=== PATIENT | female | born 1950 | race Caucasian/White ===

== ENCOUNTER 2018-01-11 12:52 | Inpatient (IN) ==
[2018-01-11] MEDS ORDERED: Sod Chloride 0.9% Inj 1,000 ML IV.SIG ONE (13:44)
--- NOTE | 2018-01-11 13:48 | ED ---
HPI General Chief complaint: Nausea/Vomiting/Diarrhea Stated complaint: medical Time Seen by Provider: 01/11/18 13:26 Source: patient Mode of arrival: ambulatory Limitations: no limitations History of Present Illness HPI narrative: Patient is a 67-year-old female with history of hypertension as well as DVT, presents to the ER for evaluation of GI bleed. Patient reports that around 4 PM yesterday afternoon, she had an episode of bloody diarrhea. She called her primary care doctor today, Dr. John, and was told to go to the ER for evaluation. Patient reports that she had another episode of bloody diarrhea today. She has had colonoscopy's in the past - reports that she did have one when she turned 62 years and it was benign and was told that she should have another one in 10 years. Patient currently is on Plavix as she does have history of DVTs. Patient with no abdominal pain, no nausea vomiting, denies any lightheaded or dizziness, patient with no other complaints. Patient reports no history of GI bleed in the past. Related Data Home Medications Medication Instructions Recorded Confirmed amlodipine 5 mg PO DAILY 01/11/18 01/11/18 clopidogrel [Plavix] 75 mg PO DAILY 01/11/18 01/11/18 hydrochlorothiazide 25 mg PO DAILY 01/11/18 01/11/18 losartan 100 mg PO DAILY 01/11/18 01/11/18 Allergies Allergy/AdvReac Type Severity Reaction Status Date / Time Penicillins Allergy Hives Verified 01/11/18 13:29 aspirin AdvReac Vomiting Verified 01/11/18 13:29 Review of Systems ROS: all other systems reviewed are negative [facility] Medical History Medical History DVT (deep venous thrombosis) (Acute) Hypertension (Acute) Social History Social History Substance History: No History of Abuse Second Hand Smoke Exposure: No Smoking Status: Former smoker How Often Do You Have a Drink Containing Alcohol: 4 or more times a week Recent Travel in [facility] within the Last 8 Weeks: No Recent Out of Country Travel within the Last 8 Weeks: No Immunization History Tetanus Immunization: <5 Years Exam Narrative Exam Narrative: GENERAL: NAD SKIN: Focused skin assessment warm/dry. HEAD: Atraumatic. Normocephalic. EYES: Pupils equal and round. No scleral icterus. No injection or drainage. ENT: No nasal bleeding or discharge. Mucous membranes pink and moist. NECK: Trachea midline. No JVD. CARDIOVASCULAR: Regular rate and rhythm. No murmur appreciated. RESPIRATORY: No accessory muscle use. Clear to auscultation. Breath sounds equal bilaterally. GASTROINTESTINAL: Abdomen soft, non-tender, nondistended. Hepatic and splenic margins not palpable. Recttal exam performed with RN at bedside, patient with grossly heme positive melanotic stool MUSCULOSKELETAL: No obvious deformities. No clubbing. No cyanosis. No edema. NEUROLOGICAL: Awake and alert. No obvious cranial nerve deficits. Motor grossly within normal limits. Normal speech. PSYCHIATRIC: Appropriate mood and affect; insight and judgment normal. Course Initial Documented Vital Signs Temperature 98.6 F 01/11/18 13:08 Pulse Rate 97 H 01/11/18 13:08 Respiratory Rate 16 01/11/18 13:08 Blood Pressure 148/82 H 01/11/18 13:08 Pulse Oximetry 100 01/11/18 13:08 Last Documented Vital Signs Temperature 98.6 F 01/11/18 13:08 Pulse Rate 92 H 01/11/18 13:31 Respiratory Rate 24 01/11/18 13:31 Blood Pressure 172/84 H 01/11/18 13:31 Pulse Oximetry 98 01/11/18 14:49 Medical Decision Making MDM Narrative Medical decision making narrative: During the course of the patients emergency department visit, the patients history, examination, and differential diagnosis were reviewed with the patient. The patient was placed on a sports physical therapist with oximetry and frequent blood pressure monitoring. The patient had an IV access obtained and blood work sent for analysis. The patient was initially provided IVF, type and screen ordered as she does have melanotic stool The patients laboratory studies were reviewed and remarkable for potassium 2.9 - iv and po potassium administered, hgb 11.3 - patient anemic with melana - patient will be obs for GI bleed workup case reviewed with Dr. Gamble who accepts pt to service Radiology studies were reviewed and remarkable for [-] Medical Screen Exam Complete: Yes Emergency Medical Condition: Yes Differential Diagnosis Differential Diagnosis: GI bleed - gastric/duodenal ulcer vs duodenitis, anemia , electrolyte abnormality Medical Records Medical records reviewed: Yes I reviewed the patient's medical records. Lab Data Result diagrams: 01/11/18 13:59 01/11/18 13:59 Lab Results 01/11/18 01/11/18 01/11/18 Range/Units 13:59 13:59 13:59 WBC 3.7 L (4.0-11.0) th/mm3 RBC 3.60 L (4.00-5.30) mil/mm3 Hgb 11.3 L (11.6-15.3) gm/dL Hct 33.8 L (35.0-46.0) % MCV 94.0 (80.0-100.0) fL MCH 31.5 (27.0-34.0) pg MCHC 33.5 (32.0-36.0) % RDW 13.7 (11.6-17.2) % Plt Count 300 (150-450) th/mm3 MPV 6.8 L (7.0-11.0) fL Neut % (Auto) 76.6 H (16.0-70.0) % Lymph % (Auto) 13.1 (9.0-44.0) % [place] % (Auto) 9.7 H (0.0-8.0) % Eos % (Auto) 0.3 (0.0-4.0) % Baso % (Auto) 0.3 (0.0-2.0) % Neut # (Auto) 2.9 (1.8-7.7) th/mm3 Lymph # (Auto) 0.5 L (1.0-4.8) th/mm3 [place] # (Auto) 0.4 (0.0-0.9) th/mm3 Eos # (Auto) 0.0 (0.0-0.4) th/mm3 Baso # (Auto) 0.0 (0.0-0.2) th/mm3 WBC Differential . Differential Comment Auto diff final PT 10.2 (9.8-11.6) sec INR 1.0 Ratio APTT 22.7 L (24.3-30.1) sec Sodium 136 (136-145) meq/L Potassium 2.9 L* (3.5-5.1) meq/L Chloride 101 (98-107) meq/L Carbon Dioxide 26.2 (21.0-32.0) meq/L Anion Gap 9 (5-15) meq/L BUN 12 (7-18) mg/dL Creatinine 0.99 (0.50-1.00) mg/dL Estimated GFR 56 L (>89) mL/min Random Glucose 102 (74-106) mg/dL Calcium 9.6 (8.5-10.1) mg/dL Total Bilirubin 0.9 (0.2-1.0) mg/dL AST 25 (15-37) U/L ALT 26 (10-53) U/L Alkaline Phosphatase 67 (45-117) U/L Total Protein 8.8 H (6.4-8.2) g/dL Albumin 4.1 (3.4-5.0) g/dL Lipase 141 (73-393) U/L Urine Color (Yellw/Straw) Urine Clarity (Clear) Urine pH (5.0-8.5) Ur Specific [place] (1.002-1.035) Urine Protein (Neg-Trace) mg/dL Urine Glucose (UA) (Negative) mg/dL Urine Ketones (Negative) mg/dL Urine Occult Blood (Negative) Urine Nitrate (Negative) Urine Bilirubin (Negative) Urine Urobilinogen (Less than 2) mg/dL Ur Leukocyte Esterase (Negative) Urine RBC (0-3) /hpf Urine WBC (0-5) /hpf Ur Squamous Epith Cells (0-5) /hpf Hyaline Casts (0-3) /lpf Urine Mucus (Occasional) /lpf Micro UA Comment Ur Microscopic Review Urine Culture Comments Blood Type Blood Type Recheck Antibody Screen 01/11/18 01/11/18 Range/Units 13:59 14:33 WBC (4.0-11.0) th/mm3 RBC (4.00-5.30) mil/mm3 Hgb (11.6-15.3) gm/dL Hct (35.0-46.0) % MCV (80.0-100.0) fL MCH (27.0-34.0) pg MCHC (32.0-36.0) % RDW (11.6-17.2) % Plt Count (150-450) th/mm3 MPV (7.0-11.0) fL Neut % (Auto) (16.0-70.0) % Lymph % (Auto) (9.0-44.0) % [place] % (Auto) (0.0-8.0) % Eos % (Auto) (0.0-4.0) % Baso % (Auto) (0.0-2.0) % Neut # (Auto) (1.8-7.7) th/mm3 Lymph # (Auto) (1.0-4.8) th/mm3 [place] # (Auto) (0.0-0.9) th/mm3 Eos # (Auto) (0.0-0.4) th/mm3 Baso # (Auto) (0.0-0.2) th/mm3 WBC Differential Differential Comment PT (9.8-11.6) sec INR Ratio APTT (24.3-30.1) sec Sodium (136-145) meq/L Potassium (3.5-5.1) meq/L Chloride (98-107) meq/L Carbon Dioxide (21.0-32.0) meq/L Anion Gap (5-15) meq/L BUN (7-18) mg/dL Creatinine (0.50-1.00) mg/dL Estimated GFR (>89) mL/min Random Glucose (74-106) mg/dL Calcium (8.5-10.1) mg/dL Total Bilirubin (0.2-1.0) mg/dL AST (15-37) U/L ALT (10-53) U/L Alkaline Phosphatase (45-117) U/L Total Protein (6.4-8.2) g/dL Albumin (3.4-5.0) g/dL Lipase (73-393) U/L Urine Color Yellow (Yellw/Straw) Urine Clarity Clear (Clear) Urine pH 6.0 (5.0-8.5) Ur Specific [place] 1.013 (1.002-1.035) Urine Protein Negative (Neg-Trace) mg/dL Urine Glucose (UA) Negative (Negative) mg/dL Urine Ketones Negative (Negative) mg/dL Urine Occult Blood Moderate H (Negative) Urine Nitrate Negative (Negative) Urine Bilirubin Negative (Negative) Urine Urobilinogen Less than 2 (Less than 2) mg/dL Ur Leukocyte Esterase Negative (Negative) Urine RBC 1 (0-3) /hpf Urine WBC 3 (0-5) /hpf Ur Squamous Epith Cells 1 (0-5) /hpf Hyaline Casts 25 (0-3) /lpf Urine Mucus Few H (Occasional) /lpf Micro UA Comment Culture not ind Ur Microscopic Review Not Reportable Urine Culture Comments Culture not ind Blood Type A Negative Blood Type Recheck Required Antibody Screen Negative Imaging Data Radiologist's impression: Abdomen/Pelvis CT 01/11/18 13:44 CONCLUSION: 1. Cholelithiasis. 2. Diffuse atherosclerosis. 3. No inflammatory changes are seen in the abdomen or pelvis. 4. Nonobstructing right renal calculi. Discharge Plan Discharge Disposition Patient Disposition: 30 Still Patient Discharge Condition Condition: Stable Discharge Details Diagnosis: GI bleed Physicians Team ED Provider: Lawanda Kessler Primary Care Provider: Jose Elam Rxs /Orders / Referrals /Forms Prescriptions: No Action clopidogrel [Plavix] 75 mg Tablet 75 mg PO DAILY RF: 0 amlodipine 5 mg Tablet 5 mg PO DAILY RF: 0 hydrochlorothiazide 25 mg Tablet 25 mg PO DAILY RF: 0 losartan 100 mg Tablet 100 mg PO DAILY RF: 0 Discharge Interventions Interventions: Vital Signs Last Done: 01/11/18 13:31 Status ED Status: With Doctor
[2018-01-11 14:13] LABS: Baso % (Auto) 0.3 % (0.0-2.0); Eos % (Auto) 0.3 % (0.0-4.0); Hematocrit 33.8 % (35.0-46.0); Hemoglobin 11.3 gm/dL (11.6-15.3); Lymph # (Auto) 0.5 th/mm3 (1.0-4.8); Lymph % (Auto) 13.1 % (9.0-44.0); Mean Corpuscular HGB Conc 33.5 % (32.0-36.0); Mean Corpuscular Hemoglobin 31.5 pg (27.0-34.0); Mean Platelet Volume 6.8 fL (7.0-11.0); Mono # (Auto) 0.4 th/mm3 (0.0-0.9); Mono % (Auto) 9.7 % (0.0-8.0); Neut # (Auto) 2.9 th/mm3 (1.8-7.7); Neut % (Auto) 76.6 % (16.0-70.0); Platelet Count 300 th/mm3 (150-450); Red Cell Distribution Width 13.7 % (11.6-17.2); White Blood Count 3.7 th/mm3 (4.0-11.0)
[2018-01-11 14:23] LABS: Activated Partial Thrombo Time 22.7 sec (24.3-30.1); Prothrombin Time 10.2 sec (9.8-11.6)
[2018-01-11 14:35] LABS: Alanine Aminotransferase 26 U/L (10-53); Albumin 4.1 g/dL (3.4-5.0); Alkaline Phosphatase 67 U/L (45-117); Anion Gap 9 meq/L (5-15); Aspartate Aminotransferase 25 U/L (15-37); Blood Urea Nitrogen 12 mg/dL (7-18); Calcium 9.6 mg/dL (8.5-10.1); Carbon Dioxide 26.2 meq/L (21.0-32.0); Chloride 101 meq/L (98-107); Glomerular Filtration Rate 56 mL/min (>89); Glucose,Random 102 mg/dL (74-106); Lipase 141 U/L (73-393); Sodium 136 meq/L (136-145); Total Protein 8.8 g/dL (6.4-8.2)
[2018-01-11 14:39] LABS: Potassium 2.9 meq/L (3.5-5.1)
[2018-01-11] MEDS ORDERED: Potassium Chlor 20 mEq Premix 20 MEQ/100 ML PIGGYBACK IV.SIG ONE (15:13)
--- NOTE | 2018-01-11 15:15 | CT ---
EXAM DATE: 01/11/2018 1:48 PM EDT AGE/SEX: 67 years / Female INDICATIONS: Bloody diarrhea since yesterday abdomen pian CLINICAL DATA: This is the patient's initial encounter. Patient reports that signs and symptoms have been present for 1 day and indicates a pain score of 0/10. MEDICAL/SURGICAL HISTORY: Deep venous thrombosis. Hypertension. None. RADIATION DOSE: 11.17 CTDI (mGy) COMPARISON: No prior exams available for comparison. TECHNIQUE: Multiple contiguous axial images were obtained through the abdomen. Images were obtained using multiple row detector helical technique. Using automated exposure control and adjustment of the mA and/or kV according to patient size, radiation dose was kept as low as reasonably achievable to o btain optimal diagnostic quality images. DICOM format image data is available electronically for rev iew and comparison. FINDINGS: Lung bases are clear. Osseous structures are intact. Atherosclerotic calcification of the aorta and i liac vessels are noted. Cholelithiasis is noted. Liver, spleen, pancreas, adrenal glands, left kidney unremarkable. Nonobstructing 2 mm right midpole renal calculi. Urinary bladder is unremarkable. Uter us and adnexa are unremarkable. No evidence of bowel obstruction, free fluid or free air. Appendix no rmal. Right common iliac artery stent. CONCLUSION: 1. Cholelithiasis. 2. Diffuse atherosclerosis. 3. No inflammatory changes are seen in the abdomen or pelvis. 4. Nonobstructing right renal calculi. Electronically signed by: Anson Ghotra MD 01/11/2018 3:14 PM EDT
[2018-01-11] MEDS ORDERED: Pantoprazole Inj 80 MG in Sodium Chlor 0.9% Inj 35 ML IV.SIG ONE (15:17)
[2018-01-11 15:23] LABS: Bilirubin,Urine Negative (Negative); Clarity,Urine Clear (Clear); Color,Urine Yellow (Yellw/Straw); Glucose,Urine (UA) Negative (Negative); Hyaline Casts,Urine 25 /lpf (0-3); Leukocyte Esterase,Urine Negative (Negative); Mucus,Urine Few /lpf (Occasional); Nitrite,Urine Negative (Negative); Specific Gravity,Urine 1.013 (1.002-1.035); Squamous Epithelial Cell,Urine 1 /hpf (0-5)
--- NOTE | 2018-01-11 16:09 | P.HPIM ---
History of Present Illness Primary Care Physician: Jose Elam Pt is 67 yo female on plavix for pad, who took just 2 or 3 ibuprofen within last few days and drinks usually 2 beers per day. 2 days ago had 4 beers. Pt began seeing [facility]bpr yesterday and alot of gas and bloating. In ED she was found to have melena on exam. I was asked to admit her for GI evaluation. PMH htn pad. stents right iliac rle thrombosis. tpa reports "nml:" colonoscopy about 10yrs ago. sh average 2 beers per day. quit tob 10 yrs ago. 25yrs 1ppd NC. - Diagnosis (1) GI bleed (2) PAD (peripheral artery disease) (3) HTN (hypertension) Review of Systems rectal bleeding. PMF - History History Provided By: Patient - Medical History Medical History: Medical History (Last Reviewed 01/11/18 @ 13:51 by Lawanda Kessler) DVT (deep venous thrombosis) Hypertension - Tobacco History Second Hand Smoke Exposure: No Smoking Status: Former smoker - Alcohol History How Often Do You Have a Drink Containing Alcohol: 4 or more times a week - Substance Use History Substance History: No History of Abuse - Travel History Recent Travel in the [place] Within the Last 8 Weeks: No Recent Travel Out of the Country Within the Last 8 Weeks: No - Immunization History Tetanus Immunization: <5 Years Medications and Allergies Active Medications: Active Medications Amlodipine Besylate (Norvasc) 5 mg PO DAILY MYRA Clonidine HCl (Catapres) 0.1 mg PO Q6H PRN PRN Reason: sbp > 170 Hydrochlorothiazide (Hydrodiuril) 25 mg PO DAILY MYRA Potassium Chloride (Kcl 20 Meq Premix Inj) 20 meq in 100 mls @ 50 mls/hr IV.SIG ONCE ONE Stop: 01/11/18 17:12 Last Admin: 01/11/18 16:01 Dose: 50 mls/hr Pantoprazole Sodium 80 mg/ (Sodium Chloride) 100 mls @ 10 mls/hr IV.CONT CONT MYRA Potassium Chloride/Sodium Chloride (Ns + Kcl 20 Meq Inj) 1,000 mls @ 84 mls/hr IV.CONT .[id number] MYRA Non-Formulary Medication (Losartan [Losartan]) 100 mg PO DAILY MYRA Sodium Chloride (Ns Flush) 2 ml IV.FLUSH PRN PRN PRN Reason: FLUSH AFTER USING IV ACCESS Allergies Allergy/AdvReac Type Severity Reaction Status Date / Time Penicillins Allergy Hives Verified 01/11/18 13:29 aspirin AdvReac Vomiting Verified 01/11/18 13:29 Home Medications Medication Instructions Recorded Confirmed Type amlodipine 5 mg PO DAILY 01/11/18 01/11/18 History clopidogrel [Plavix] 75 mg PO DAILY 01/11/18 01/11/18 History hydrochlorothiazide 25 mg PO DAILY 01/11/18 01/11/18 History losartan 100 mg PO DAILY 01/11/18 01/11/18 History Exam Vital signs: Vital Signs 01/11/18 13:08 01/11/18 13:31 01/11/18 14:49 Temperature 98.6 F Pulse Rate 97 H 92 H Respiratory Rate 16 24 Blood Pressure 148/82 H 172/84 H Pulse Oximetry 100 100 98 Intake & Output 01/10/18 01/11/18 01/11/18 18:59 06:59 18:59 Intake Total 1000 / 1000 Balance 1000 / 1000 Weight 68.492 kg Intake: IV 1000 / 1000 NS Inj 1,000 ML @ Wide Open IV. 1000 / 1000 SIG BOLUS ONE Rx#:[id number] heart reg lung cta abd s/nt ext no edema Results - Labs CBC & Chem 7: 01/11/18 13:59 01/11/18 13:59 Labs: Short CBC 01/11/18 Range/Units 13:59 WBC 3.7 L (4.0-11.0) th/mm3 Hgb 11.3 L (11.6-15.3) gm/dL Hct 33.8 L (35.0-46.0) % Plt Count 300 (150-450) th/mm3 BMP 01/11/18 13:59 Sodium 136 Potassium 2.9 L* Chloride 101 Carbon Dioxide 26.2 BUN 12 Creatinine 0.99 Calcium 9.6 Liver Function 01/11/18 Range/Units 13:59 Total Bilirubin 0.9 (0.2-1.0) mg/dL AST 25 (15-37) U/L ALT 26 (10-53) U/L Alkaline Phosphatase 67 (45-117) U/L Albumin 4.1 (3.4-5.0) g/dL Urine 01/11/18 Range/Units 14:33 Urine Color Yellow (Yellw/Straw) Urine Clarity Clear (Clear) Urine pH 6.0 (5.0-8.5) Ur Specific [place] 1.013 (1.002-1.035) Urine Protein Negative (Neg-Trace) mg/dL Urine Glucose (UA) Negative (Negative) mg/dL - Imaging Impressions Abdomen/Pelvis CT 01/11/18 13:44 CONCLUSION: 1. Cholelithiasis. 2. Diffuse atherosclerosis. 3. No inflammatory changes are seen in the abdomen or pelvis. 4. Nonobstructing right renal calculi. Caprini VTE Risk Assessment Caprini VTE Risk Assessment: Moderate/High Risk (score >= 2) Caprini Risk Assessment Model: Point Value = 1 Point Value = 2 Point Value = 3 Point Value = 5 Age 41-60 Minor surgery BMI > 25 kg/m2 Swollen legs Varicose veins or History of unexplained or recurrent spontaneous Oral contraceptives or hormone replacement Sepsis (< 1 month) Serious lung disease, including pneumonia (< 1 month) Abnormal pulmonary function Acute myocardial infarction Congestive heart failure (< 1 month) History of inflammatory bowel disease Medical patient at bed rest Age 61-74 Arthroscopic surgery Major open surgery (> 45 min) Laparoscopic surgery (> 45 min) Malignancy Confined to bed (> 72 hours) Immobilizing plaster cast Central venous access Age >= 75 History of VTE Family history of VTE Factor V Leiden Prothrombin [id number] Lupus anticoagulant Anticardiolipin antibodies Elevated serum homocysteine Heparin-induced thrombocytopenia Other congenital or acquired thrombophilia Stroke (< 1 month) Elective arthroplasty Hip, pelvis, or leg fracture Acute spinal cord injury (< 1 month) Prophylaxis Regimen: Total Risk Factor Score Risk Level Prophylaxis Regimen 0-1 Low Early ambulation 2 Moderate Order ONE of the following: *Sequential Compression Device (SCD) *Heparin 5000 units SQ BID 3-4 Higher Order ONE of the following medications: *Heparin 5000 units SQ TID *Enoxaparin/Lovenox 40 mg SQ daily (WT < 150 kg, CrCl > 30 mL/min) *Enoxaparin/Lovenox 30 mg SQ daily (WT < 150 kg, CrCl > 10-29 mL/min) *Enoxaparin/Lovenox 30 mg SQ BID (WT < 150 kg, CrCl > 30 mL/min) AND/OR *Sequential Compression Device (SCD) 5 or more Highest Order ONE of the following medications: *Heparin 5000 units SQ TID (Preferred with Epidurals) *Enoxaparin/Lovenox 40 mg SQ daily (WT < 150 kg, CrCl > 30 mL/min) *Enoxaparin/Lovenox 30 mg SQ daily (WT < 150 kg, CrCl > 10-29 mL/min) *Enoxaparin/Lovenox 30 mg SQ BID (WT < 150 kg, CrCl > 30 mL/min) AND *Sequential Compression Device (SCD) Assessment and Plan - Assessment (1) GI bleed Code(s): K92.2 - Gastrointestinal hemorrhage, unspecified Status: Acute Plan: 1. acute GIB.melena on exam pt uses ibuprofen, etoh, plavix. 2. hx pad/rle stents 3. htn 4. hypokalemia consult GI to evaluate for possible endoscopy clears IVF with kcl iv ppi dvt prophylaxis hold plavix. (2) PAD (peripheral artery disease) Code(s): I73.9 - Peripheral vascular disease, unspecified Status: Chronic (3) HTN (hypertension) Code(s): I10 - Essential (primary) hypertension Status: Chronic
[2018-01-11] MEDS: Pantoprazole Inj 80 MG in Sodium Chlor 0.9% Inj 100 ML IV.CONT SCH (16:18)
--- NOTE | 2018-01-11 17:21 | P.CONGI ---
History of Present Illness Consult date: 01/11/18 Consult reason: GI bleed with melena Chief complaint: GI bleed History of Present Illness: This patient is a 67-year-old female who presented to the emergency room today with report of dark brown to black stools with noted blood times 1 day. Patient also reports increased gas and abdominal bloating for 1-2 days. She denies any nausea or vomiting. Of note this patient is currently taking Plavix 75 mg p.o. daily for the past 7-8 years for peripheral artery disease as well as history of DVT to the right lower extremity. Patient denies the use of iron supplements, Pepto-Bismol, ingestion of dark green leafy vegetables or dark fruits. Patient endorses use of ibuprofen "a few days ago" for generalized pain . Patient denies any symptoms of acid reflux, she denies heartburn. She does report 2 episodes recently of difficulty swallowing pieces of beef. Patient states she felt it took a very long time to swallow the meat. After relaxing and deep breathing she was finally able to swallow. Patient denies odynophagia. States she prevents these instances by chewing food slowly and taking smaller bites during meals. Denies coughing or choking with the ingestion of solid foods liquids or medications. Patient denies ever having had an EGD. Patient states she has had 2 colonoscopies in the past with the most recent being 3 years ago which she states was a normal exam. States she has normally 2 -3 times a day soft brown bowel movement with no noted blood. Patient denies tobacco use but does report drinking 2 beers daily. No significant family history recollected by patient for any type of gastrointestinal diseases/disorders. <Ofelia Marlow - Last Filed: 01/11/18 17:21> Review of Systems All other systems reviewed negative except as stated in HPI <Ofelia Marlow - Last Filed: 01/11/18 17:21> PMFSH - History History Provided By: Patient - Medical History Medical History: Medical History (Last Reviewed 01/11/18 @ 13:51 by Lawanda Kessler) DVT (deep venous thrombosis) Hypertension - Tobacco History Second Hand Smoke Exposure: No Smoking Status: Former smoker - Alcohol History How Often Do You Have a Drink Containing Alcohol: 4 or more times a week - Substance Use History Substance History: No History of Abuse - Travel History Recent Travel in the [facility] Within the Last 8 Weeks: No Recent Travel Out of the Country Within the Last 8 Weeks: No - Immunization History Tetanus Immunization: <5 Years <Ofelia Marlow - Last Filed: 01/11/18 17:21> - Medical History Medical History: Medical History (Last Reviewed 01/11/18 @ 13:51 by Lawanda Kessler) DVT (deep venous thrombosis) Hypertension <Darleen Brandon - Last Filed: 01/11/18 18:45> Medications and Allergies Active Medications: Active Medications Amlodipine Besylate (Norvasc) 5 mg PO DAILY MYRA Clonidine HCl (Catapres) 0.1 mg PO Q6H PRN PRN Reason: sbp > 170 Hydrochlorothiazide (Hydrodiuril) 25 mg PO DAILY MYRA Potassium Chloride (Kcl 20 Meq Premix Inj) 20 meq in 100 mls @ 50 mls/hr IV.SIG ONCE ONE Stop: 01/11/18 17:12 Last Admin: 01/11/18 16:01 Dose: 50 mls/hr Pantoprazole Sodium 80 mg/ (Sodium Chloride) 100 mls @ 10 mls/hr IV.CONT CONT MYRA Last Admin: 01/11/18 16:18 Dose: 10 mls/hr Potassium Chloride/Sodium Chloride (Ns + Kcl 20 Meq Inj) 1,000 mls @ 84 mls/hr IV.CONT .[id number] MYRA Losartan Potassium (Cozaar) 100 mg PO DAILY MYRA Sodium Chloride (Ns Flush) 2 ml IV.FLUSH PRN PRN PRN Reason: FLUSH AFTER USING IV ACCESS <Ofelia Marlow - Last Filed: 01/11/18 17:21> Active Medications: Active Medications Amlodipine Besylate (Norvasc) 5 mg PO DAILY MYRA Clonidine HCl (Catapres) 0.1 mg PO Q6H PRN PRN Reason: sbp > 170 Hydrochlorothiazide (Hydrodiuril) 25 mg PO DAILY MYRA Pantoprazole Sodium 80 mg/ (Sodium Chloride) 100 mls @ 10 mls/hr IV.CONT CONT MYRA Last Admin: 01/11/18 16:18 Dose: 10 mls/hr Potassium Chloride/Sodium Chloride (Ns + Kcl 20 Meq Inj) 1,000 mls @ 84 mls/hr IV.CONT .[id number] MYRA Last Admin: 01/11/18 18:01 Dose: 84 mls/hr Losartan Potassium (Cozaar) 100 mg PO DAILY MYRA Sodium Chloride (Ns Flush) 2 ml IV.FLUSH PRN PRN PRN Reason: FLUSH AFTER USING IV ACCESS <Darleen Brandon - Last Filed: 01/11/18 18:45> Allergies Allergy/AdvReac Type Severity Reaction Status Date / Time Penicillins Allergy Hives Verified 01/11/18 13:29 aspirin AdvReac Vomiting Verified 01/11/18 13:29 Home Medications Medication Instructions Recorded Confirmed Type amlodipine 5 mg PO DAILY 01/11/18 01/11/18 History clopidogrel [Plavix] 75 mg PO DAILY 01/11/18 01/11/18 History hydrochlorothiazide 25 mg PO DAILY 01/11/18 01/11/18 History losartan 100 mg PO DAILY 01/11/18 01/11/18 History Exam Vital signs: Vital Signs 01/11/18 13:08 01/11/18 13:31 01/11/18 14:24 Temperature 98.6 F Pulse Rate 97 H 92 H 80 Respiratory Rate 16 18 Blood Pressure 148/82 H 172/84 H 125/69 Pulse Oximetry 100 100 98 01/11/18 14:49 Temperature Pulse Rate Respiratory Rate Blood Pressure Pulse Oximetry 98 Intake & Output 01/10/18 01/11/18 01/11/18 18:59 06:59 18:59 Intake Total 1035 / 1035 Balance 1035 / 1035 Weight 68.492 kg Intake: IV 1035 / 1035 Protonix Inj 80 MG In NS Inj 35 35 / 35 ML @ 420 mls/hr IV.SIG BOLUS ONE Rx#:[id number] NS Inj 1,000 ML @ Wide Open IV. 1000 / 1000 SIG BOLUS ONE Rx#:[id number] - Constitutional no acute distress - Routine HEENT Exam Head: Present: normocephalic - Routine Respiratory Exam Present: CTA bilaterally. Absent: accessory muscle use - Routine Cardiovascular Exam Present: RRR - Routine Abdominal Exam Present: soft, normoactive bowel sounds. Absent: tenderness, distended, guarding, firm - Routine Extremities Exam Present: full ROM, pulses intact. Absent: edema - Routine Skin Exam Present: dry, warm - Routine Neurological Exam Present: alert, oriented X3 <Marlow,Ofelia - Last Filed: 01/11/18 17:21> Vital signs: Vital Signs 01/11/18 13:08 01/11/18 13:31 01/11/18 14:24 Temperature 98.6 F Pulse Rate 97 H 92 H 80 Respiratory Rate 16 24 18 Blood Pressure 148/82 H 172/84 H 125/69 Pulse Oximetry 100 100 98 01/11/18 14:49 01/11/18 18:00 Temperature 98.4 F Pulse Rate 80 Respiratory Rate 16 Blood Pressure 161/82 H Pulse Oximetry 98 99 Intake & Output 01/10/18 01/11/18 01/11/18 18:59 06:59 18:59 Intake Total 1135 / 1135 Balance 1135 / 1135 Weight 68.492 kg Intake: IV 1135 / 1135 Protonix Inj 80 MG In NS Inj 35 35 / 35 ML @ 420 mls/hr IV.SIG BOLUS ONE Rx#:[id number] KCl 20 mEq Premix Inj 20 meq In 100 / 100 100 ml @ 50 mls/hr IV.SIG ONCE ONE Rx#:[id number] NS Inj 1,000 ML @ Wide Open IV. 1000 / 1000 SIG BOLUS ONE Rx#:[id number] Other: Date of Last Bowel Movement 01/11/18 <Darleen Brandon - Last Filed: 01/11/18 18:45> Results - Labs CBC & Chem 7: 01/11/18 13:59 01/11/18 13:59 Labs: Laboratory Results - last 24 hr 01/11/18 01/11/18 01/11/18 13:59 13:59 13:59 WBC 3.7 L RBC 3.60 L Hgb 11.3 L Hct 33.8 L MCV 94.0 MCH 31.5 MCHC 33.5 RDW 13.7 Plt Count 300 MPV 6.8 L Neut % (Auto) 76.6 H Lymph % (Auto) 13.1 [place] % (Auto) 9.7 H Eos % (Auto) 0.3 Baso % (Auto) 0.3 Neut # (Auto) 2.9 Lymph # (Auto) 0.5 L [place] # (Auto) 0.4 Eos # (Auto) 0.0 Baso # (Auto) 0.0 WBC Differential . Differential Comment Auto diff final PT 10.2 INR 1.0 APTT 22.7 L Sodium 136 Potassium 2.9 L* Chloride 101 Carbon Dioxide 26.2 Anion Gap 9 BUN 12 Creatinine 0.99 Estimated GFR 56 L Random Glucose 102 Calcium 9.6 Total Bilirubin 0.9 AST 25 ALT 26 Alkaline Phosphatase 67 Total Protein 8.8 H Albumin 4.1 Lipase 141 Urine Color Urine Clarity Urine pH Ur Specific [place] Urine Protein Urine Glucose (UA) Urine Ketones Urine Occult Blood Urine Nitrate Urine Bilirubin Urine Urobilinogen Ur Leukocyte Esterase Urine RBC Urine WBC Ur Squamous Epith Cells Hyaline Casts Urine Mucus Micro UA Comment Ur Microscopic Review Urine Culture Comments Blood Type Blood Type Recheck Antibody Screen 01/11/18 01/11/18 13:59 14:33 WBC RBC Hgb Hct MCV MCH MCHC RDW Plt Count MPV Neut % (Auto) Lymph % (Auto) [place] % (Auto) Eos % (Auto) Baso % (Auto) Neut # (Auto) Lymph # (Auto) [place] # (Auto) Eos # (Auto) Baso # (Auto) WBC Differential Differential Comment PT INR APTT Sodium Potassium Chloride Carbon Dioxide Anion Gap BUN Creatinine Estimated GFR Random Glucose Calcium Total Bilirubin AST ALT Alkaline Phosphatase Total Protein Albumin Lipase Urine Color Yellow Urine Clarity Clear Urine pH 6.0 Ur Specific [place] 1.013 Urine Protein Negative Urine Glucose (UA) Negative Urine Ketones Negative Urine Occult Blood Moderate H Urine Nitrate Negative Urine Bilirubin Negative Urine Urobilinogen Less than 2 Ur Leukocyte Esterase Negative Urine RBC 1 Urine WBC 3 Ur Squamous Epith Cells 1 Hyaline Casts 25 Urine Mucus Few H Micro UA Comment Culture not ind Ur Microscopic Review Not Reportable Urine Culture Comments Culture not ind Blood Type A Negative Blood Type Recheck Required Antibody Screen Negative - Imaging Impressions Abdomen/Pelvis CT 01/11/18 13:44 CONCLUSION: 1. Cholelithiasis. 2. Diffuse atherosclerosis. 3. No inflammatory changes are seen in the abdomen or pelvis. 4. Nonobstructing right renal calculi. <Ofelia Marlow - Last Filed: 01/11/18 17:21> - Labs CBC & Chem 7: 01/11/18 13:59 01/11/18 13:59 Labs: Laboratory Results - last 24 hr 01/11/18 01/11/18 01/11/18 13:59 13:59 13:59 WBC 3.7 L RBC 3.60 L Hgb 11.3 L Hct 33.8 L MCV 94.0 MCH 31.5 MCHC 33.5 RDW 13.7 Plt Count 300 MPV 6.8 L Neut % (Auto) 76.6 H Lymph % (Auto) 13.1 [place] % (Auto) 9.7 H Eos % (Auto) 0.3 Baso % (Auto) 0.3 Neut # (Auto) 2.9 Lymph # (Auto) 0.5 L [place] # (Auto) 0.4 Eos # (Auto) 0.0 Baso # (Auto) 0.0 WBC Differential . Differential Comment Auto diff final PT 10.2 INR 1.0 APTT 22.7 L Sodium 136 Potassium 2.9 L* Chloride 101 Carbon Dioxide 26.2 Anion Gap 9 BUN 12 Creatinine 0.99 Estimated GFR 56 L Random Glucose 102 Calcium 9.6 Total Bilirubin 0.9 AST 25 ALT 26 Alkaline Phosphatase 67 Total Protein 8.8 H Albumin 4.1 Lipase 141 Urine Color Urine Clarity Urine pH Ur Specific [place] Urine Protein Urine Glucose (UA) Urine Ketones Urine Occult Blood Urine Nitrate Urine Bilirubin Urine Urobilinogen Ur Leukocyte Esterase Urine RBC Urine WBC Ur Squamous Epith Cells Hyaline Casts Urine Mucus Micro UA Comment Ur Microscopic Review Urine Culture Comments Blood Type Blood Type Recheck Antibody Screen 01/11/18 01/11/18 13:59 14:33 WBC RBC Hgb Hct MCV MCH MCHC RDW Plt Count MPV Neut % (Auto) Lymph % (Auto) [place] % (Auto) Eos % (Auto) Baso % (Auto) Neut # (Auto) Lymph # (Auto) [place] # (Auto) Eos # (Auto) Baso # (Auto) WBC Differential Differential Comment PT INR APTT Sodium Potassium Chloride Carbon Dioxide Anion Gap BUN Creatinine Estimated GFR Random Glucose Calcium Total Bilirubin AST ALT Alkaline Phosphatase Total Protein Albumin Lipase Urine Color Yellow Urine Clarity Clear Urine pH 6.0 Ur Specific [place] 1.013 Urine Protein Negative Urine Glucose (UA) Negative Urine Ketones Negative Urine Occult Blood Moderate H Urine Nitrate Negative Urine Bilirubin Negative Urine Urobilinogen Less than 2 Ur Leukocyte Esterase Negative Urine RBC 1 Urine WBC 3 Ur Squamous Epith Cells 1 Hyaline Casts 25 Urine Mucus Few H Micro UA Comment Culture not ind Ur Microscopic Review Not Reportable Urine Culture Comments Culture not ind Blood Type A Negative Blood Type Recheck Required Antibody Screen Negative - Imaging Impressions Abdomen/Pelvis CT 01/11/18 13:44 CONCLUSION: 1. Cholelithiasis. 2. Diffuse atherosclerosis. 3. No inflammatory changes are seen in the abdomen or pelvis. 4. Nonobstructing right renal calculi. <Darleen Brandon - Last Filed: 01/11/18 18:45> Assessment and Plan (1) GI bleed Status: Acute Code(s): K92.2 - Gastrointestinal hemorrhage, unspecified (2) Dysphagia Status: Acute Code(s): R13.10 - Dysphagia, unspecified - Plan This patient is a 67-year-old female who presented to the emergency room today with report of dark brown to black stools with noted blood times 1 day. Patient also reports increased gas and abdominal bloating for 1-2 days. She denies any nausea or vomiting. Of note this patient is currently taking Plavix 75 mg p.o. daily for the past 7-8 years for peripheral artery disease as well as history of DVT to the right lower extremity. Patient denies the use of iron supplements, Pepto-Bismol, ingestion of dark green leafy vegetables or dark fruits. Patient endorses use of ibuprofen "a few days ago" for generalized pain . Patient denies any symptoms of acid reflux, she denies heartburn. She does report 2 episodes recently of difficulty swallowing pieces of beef. Patient states she felt it took a very long time to swallow the meat. After relaxing and deep breathing she was finally able to swallow. Patient denies odynophagia. States she prevents these instances by chewing food slowly and taking smaller bites during meals. Denies coughing or choking with the ingestion of solid foods liquids or medications. Patient denies ever having had an EGD. Patient states she has had 2 colonoscopies in the past with the most recent being 3 years ago which she states was a normal exam. States she has normally 2 -3 times a day soft brown bowel movement with no noted blood. Patient denies tobacco use but does report drinking 2 beers daily. No significant family history recollected by patient for any type of gastrointestinal diseases/disorders. GI bleed Patient presented to the emergency room today at [facility] with complaint of black stools times 1 day. Patient currently taking Plavix 75 mg p.o. daily for history of DVT/PAD. Most recent endoscopy as described above. Patient denies any further bleeding since admission. Hemoglobin 11.3 hematocrit 33.8 platelet count 300 INR 1.0. Discussed plan for EGD with patient who verbalized understanding and agreement. Dysphagia Patient endorses 2 recent episodes of difficulty swallowing pieces of beef. Patient denies odynophagia, denies coughing or choking with meals, liquids or medications. Discussed possibility of need to dilate during EGD if required. Patient verbalizes understanding and agreement. Plan -Clear liquid diet for dinner -N.p.o. after midnight -Consent for EGD with possible dilatation-planned for a.m. -Monitor for bleeding -Continue PPI -Monitor labs -Supportive care -Further recommendations to follow based on patient status and findings This patient has been seen by myself and Dr. MILES and this note is written on her behalf - Attending Attestation Dr. Brandon <Ofelia Marlow - Last Filed: 01/11/18 17:21> (1) GI bleed Status: Acute Code(s): K92.2 - Gastrointestinal hemorrhage, unspecified (2) Dysphagia Status: Acute Code(s): R13.10 - Dysphagia, unspecified - Attending Attestation seen, examined agree with above <Darleen Brandon - Last Filed: 01/11/18 18:45>
[2018-01-12] MEDS: Pantoprazole Inj 80 MG in Sodium Chlor 0.9% Inj 100 ML IV.CONT SCH (02:55)
[2018-01-12 08:31] LABS: Baso % (Auto) 0.5 % (0.0-2.0); Eos % (Auto) 1.1 % (0.0-4.0); Hematocrit 27.8 % (35.0-46.0); Hemoglobin 9.6 gm/dL (11.6-15.3); Lymph # (Auto) 0.5 th/mm3 (1.0-4.8); Lymph % (Auto) 14.6 % (9.0-44.0); Mean Corpuscular HGB Conc 34.5 % (32.0-36.0); Mean Corpuscular Hemoglobin 31.8 pg (27.0-34.0); Mean Corpuscular Volume 92.3 fL (80.0-100.0); Mean Platelet Volume 6.9 fL (7.0-11.0); Mono # (Auto) 0.4 th/mm3 (0.0-0.9); Mono % (Auto) 11.6 % (0.0-8.0); Neut # (Auto) 2.3 th/mm3 (1.8-7.7); Neut % (Auto) 72.2 % (16.0-70.0); Platelet Count 236 th/mm3 (150-450); Red Blood Count 3.02 mil/mm3 (4.00-5.30); Red Cell Distribution Width 13.8 % (11.6-17.2); White Blood Count 3.2 th/mm3 (4.0-11.0)
[2018-01-12] MEDS ORDERED: hydroCHLOROthiazide 25 MG Tablet PO SCH (09:00)
[2018-01-12] MEDS ORDERED: amLODIPine 5 MG Tablet PO SCH (09:00)
[2018-01-12 09:05] LABS: Calcium 8.3 mg/dL (8.5-10.1); Carbon Dioxide 23.3 meq/L (21.0-32.0); Potassium 3.5 meq/L (3.5-5.1)
--- NOTE | 2018-01-12 11:21 | P.PNIM ---
Subjective Interval history: Pt has not had any reported active GI bleeding. She had a small bloody BM yesterday but none since then No nausea/vomiting Afebrile Denies any chest pain, SOB or palpitations Pt is planned for EGD today Physical Exam Vital signs: Vital Signs 01/11/18 13:08 01/11/18 13:31 01/11/18 14:24 Temperature 98.6 F Pulse Rate 97 H 92 H 80 Respiratory Rate 16 24 18 Blood Pressure 148/82 H 172/84 H 125/69 Pulse Oximetry 100 100 98 01/11/18 14:49 01/11/18 18:00 01/12/18 00:00 Temperature 98.4 F 98.3 F Pulse Rate 80 72 Respiratory Rate 16 18 Blood Pressure 161/82 H 132/66 Pulse Oximetry 98 99 98 01/12/18 04:00 01/12/18 08:00 Temperature 98.3 F 98.2 F Pulse Rate 72 76 Respiratory Rate 18 17 Blood Pressure 132/66 132/76 Pulse Oximetry 98 97 Intake & Output 01/11/18 01/12/18 01/12/18 18:59 06:59 18:59 Intake Total 1135 / 1135 1100 / 1100 0 / 0 Balance 1135 / 1135 1100 / 1100 0 / 0 Weight 68.492 kg 55.7 kg Intake: IV 1135 / 1135 1100 / 1100 NS + KCl 20 mEq Inj 1,000 ML @ 1000 / 1000 84 mls/hr IV.CONT .[id number] [facility] Rx#:[id number] Protonix Inj 80 MG In NS Inj 100 / 100 100 ML @ 10 mls/hr IV.CONT CONT [facility] Rx#:[id number] Protonix Inj 80 MG In NS Inj 35 35 / 35 ML @ 420 mls/hr IV.SIG BOLUS ONE Rx#:[id number] KCl 20 mEq Premix Inj 20 meq In 100 / 100 100 ml @ 50 mls/hr IV.SIG ONCE ONE Rx#:[id number] NS Inj 1,000 ML @ Wide Open IV. 1000 / 1000 SIG BOLUS ONE Rx#:[id number] Oral 0 / 0 Other: # Voids 1 Date of Last Bowel Movement 01/11/18 01/11/18 Narrative: General: NAD, AAOx3 Chest: CTA Cardiac: Regular Abd: +BS, soft ND/NT Ext: No edema Results - Labs CBC & Chem 7: 01/12/18 07:20 01/12/18 07:20 Laboratory Results - last 24 hr 01/11/18 01/11/18 01/11/18 13:59 13:59 13:59 WBC 3.7 L RBC 3.60 L Hgb 11.3 L Hct 33.8 L MCV 94.0 MCH 31.5 MCHC 33.5 RDW 13.7 Plt Count 300 MPV 6.8 L Neut % (Auto) 76.6 H Lymph % (Auto) 13.1 [place] % (Auto) 9.7 H Eos % (Auto) 0.3 Baso % (Auto) 0.3 Neut # (Auto) 2.9 Lymph # (Auto) 0.[address] [place] # (Auto) 0.4 Eos # (Auto) 0.0 Baso # (Auto) 0.0 WBC Differential . Differential Comment Auto diff final PT 10.2 INR 1.0 APTT 22.7 L Sodium 136 Potassium 2.9 L* Chloride 101 Carbon Dioxide 26.2 Anion Gap 9 BUN 12 Creatinine 0.99 Estimated GFR 56 L Random Glucose 102 Calcium 9.6 Total Bilirubin 0.9 AST 25 ALT 26 Alkaline Phosphatase 67 Total Protein 8.8 H Albumin 4.1 Lipase 141 Urine Color Urine Clarity Urine pH Ur Specific [place] Urine Protein Urine Glucose (UA) Urine Ketones Urine Occult Blood Urine Nitrate Urine Bilirubin Urine Urobilinogen Ur Leukocyte Esterase Urine RBC Urine WBC Ur Squamous Epith Cells Hyaline Casts Urine Mucus Micro UA Comment Ur Microscopic Review Urine Culture Comments Blood Type Blood Type Recheck Antibody Screen 01/11/18 01/11/18 01/12/18 13:59 14:33 07:20 WBC 3.2 L RBC 3.02 L Hgb 9.6 L Hct 27.8 L MCV 92.3 MCH 31.8 MCHC 34.5 RDW 13.8 Plt Count 236 MPV 6.9 L Neut % (Auto) 72.2 H Lymph % (Auto) 14.6 [place] % (Auto) 11.6 H Eos % (Auto) 1.1 Baso % (Auto) 0.5 Neut # (Auto) 2.3 Lymph # (Auto) 0.[address] [place] # (Auto) 0.4 Eos # (Auto) 0.0 Baso # (Auto) 0.0 WBC Differential . Differential Comment Auto diff final PT INR APTT Sodium Potassium Chloride Carbon Dioxide Anion Gap BUN Creatinine Estimated GFR Random Glucose Calcium Total Bilirubin AST ALT Alkaline Phosphatase Total Protein Albumin Lipase Urine Color Yellow Urine Clarity Clear Urine pH 6.0 Ur Specific [place] 1.013 Urine Protein Negative Urine Glucose (UA) Negative Urine Ketones Negative Urine Occult Blood Moderate H Urine Nitrate Negative Urine Bilirubin Negative Urine Urobilinogen Less than 2 Ur Leukocyte Esterase Negative Urine RBC 1 Urine WBC 3 Ur Squamous Epith Cells 1 Hyaline Casts 25 Urine Mucus Few H Micro UA Comment Culture not ind Ur Microscopic Review Not Reportable Urine Culture Comments Culture not ind Blood Type A Negative Blood Type Recheck Required Antibody Screen Negative 01/12/18 07:20 WBC RBC Hgb Hct MCV MCH MCHC RDW Plt Count MPV Neut % (Auto) Lymph % (Auto) [place] % (Auto) Eos % (Auto) Baso % (Auto) Neut # (Auto) Lymph # (Auto) [place] # (Auto) Eos # (Auto) Baso # (Auto) WBC Differential Differential Comment PT INR APTT Sodium 141 Potassium 3.5 Chloride 109 H D Carbon Dioxide 23.3 Anion Gap 9 BUN 7 Creatinine 0.76 Estimated GFR 76 L Random Glucose 85 Calcium 8.3 L D Total Bilirubin AST ALT Alkaline Phosphatase Total Protein Albumin Lipase Urine Color Urine Clarity Urine pH Ur Specific [place] Urine Protein Urine Glucose (UA) Urine Ketones Urine Occult Blood Urine Nitrate Urine Bilirubin Urine Urobilinogen Ur Leukocyte Esterase Urine RBC Urine WBC Ur Squamous Epith Cells Hyaline Casts Urine Mucus Micro UA Comment Ur Microscopic Review Urine Culture Comments Blood Type Blood Type Recheck Antibody Screen - Imaging Impressions Abdomen/Pelvis CT 01/11/18 13:44 CONCLUSION: 1. Cholelithiasis. 2. Diffuse atherosclerosis. 3. No inflammatory changes are seen in the abdomen or pelvis. 4. Nonobstructing right renal calculi. Assessment and Plan - Assessment (1) GI bleed Code(s): K92.2 - Gastrointestinal hemorrhage, unspecified Status: Acute Plan: 1. Acute GIB, melena on exam - Pt uses ibuprofen, etoh, plavix. - Appreciate GI consult. - Pt is planned for EGD today - Plavix is on hold - Cont. IVF - Avoid all NSAIDs - PPI - DVT prophylaxis with SCDs 2. Hx PAD/RLE stents - Plavix is on hold due to GIB 3. HTN - Cont home meds 4. hypokalemia ADDENDUM: - Pt underwent EGD on 01/12/18 which noted gastritis in antrum, esophagitis in distal esophagus, duodenitis in duodenal bulb, two avm's in duodenum second portion-s/p APC, and a hiatal hernia - Pt recommended bu GI for PPI, Avoid NSAIDs, fu in 2 weeks and if still black stool consider repeat colonoscopy, capsule endoscopy - Discussed with Dr. Brandon if pt is cleared to resume her Plavix and she states that pt is cleared from GI standpoint to resume her Plavix. - Pt will avoid all alcohol - She is to continue Protonix 40mg BID - Followup with Dr. Brandon in 2 weeks - Followup with PCP in 1 week. The exam, history, and the medical decision-making described in the above note were completed with the assistance of the mid-level provider. I reviewed and agree with the findings presented. I attest that I had a [id number] encounter with the patient on the same day, and personally performed and documented my assessment and findings in the medical record. discussed EGD finding. dc home on ppi. no etoh or nsaid discussed. f/u GI. (2) PAD (peripheral artery disease) Code(s): I73.9 - Peripheral vascular disease, unspecified Status: Chronic (3) HTN (hypertension) Code(s): I10 - Essential (primary) hypertension Status: Chronic
[2018-01-12 12:28] VITALS: TEMP 97.6
--- NOTE | 2018-01-12 12:59 | GIPROC ---
[facility] [address] [facility], [address] EGD PROCEDURE REPORT EXAM DATE: 01/12/2018 PATIENT NAME: Mariusz Parikh MR #: [id number] BIRTHDATE: 1950 ATTENDING: Darleen Brandon MD ORDER #: [id number] MUFFLE WORKER: Love Otto and Bernie Pinto STATUS: inpatient INDICATIONS: The patient is a 67 yr old female here for an EGD due to anemia gi bleeding PROCEDURE PERFORMED: EGD w/ biopsy EGD w/ control of bleeding egd with APC MEDICATIONS: None and Per Anesthesia. TOPICAL ANESTHETIC: none CONSENT: The patient understands the risks and benefits of the procedure and understands that these risks include, but are not limited to: sedation, allergic reaction, infection, perforation and/or bleeding. Alternative means of evaluation and treatment include, among others: physical exam, x-rays, and/or surgical intervention. The patient elects to proceed with this endoscopic procedure. medical equipment was checked for proper function. Hand hygiene and appropriate measures for infection prevention was taken. After the risks, benefits and alternatives of the procedure were thoroughly explained, Informed consent was verified, confirmed and timeout was successfully executed by the treatment team. The patient was anesthetized with topical anesthesia and the Pentax [id number] endoscope was introduced through the mouth and advanced to the second portion of the duodenum. Retroflexed views revealed a hiatal hernia The gastroscope was then slowly withdrawn and removed. Gastritis antrum-biopsy esophagitis distal esophagus-biopsy duodenitis duodenal bulb-biopsy two avm's in duodenum second portion-s/p APC. ADVERSE EVENTS: There were no complications. IMPRESSIONS: 1. Gastritis antrum-biopsy esophagitis distal esophagus-biopsy duodenitis duodenal bulb-biopsy two avm's in duodenum second portion-s/p APC 2. Retroflexed views revealed a hiatal hernia RECOMMENDATIONS: 1. Await biopsy results. Biopsy results will not be ready for 7-10 days. If you don't hear from us in two weeks, call our office for biopsy results. 2. Anti-reflux regimen 3. Continue PPI 4. Avoid NSAIDS 5. Ok to dc home from gi point fu gi in 2 weeks if still black stool consider repeat colonoscopy, capsule endoscopy PATIENT CONDITION: stable DISPOSITION: Inpatient REPEAT EXAM: Return 1 year EGD Darleen Brandon MD eSigned: Darleen Brandon MD 01/12/2018 12:59 PM cc: PATIENT NAME: Mariusz Parikh MR#: [id number]
[2018-01-12 13:31] VITALS: BP 142/69; PULSE 78; RESP 16; O2SAT 96
--- NOTE | 2018-01-12 14:01 | ECG ---
Date Performed: 01/12/2018 Time Performed: 07:21:49 PTAGE: 67 years EKG: Sinus rhythm NORMAL ECG NO PREVIOUS TRACING DOCTOR: Shruthi Mancilla M.D. Interpretating Date/Time 01/12/2018 13:59:26
== END 2018-01-12 16:09 | disposition home or self-care (01) ==
LOC: NEDA 12:52 → NEPC 12:52 → OBSVTOIN 15:39 → NEDA 17:08 → N07 17:23
PROVIDERS: ADMIT Hospitalist; ATTEND Hospitalist